=== PATIENT | male | born 1970 | race Two or more races ===

== ENCOUNTER 2023-11-13 09:24 | Emergency (ER) | payer OTHER, SELFPAY ==
[2023-11-13 09:32] VITALS: BP 166/106; PULSE 70; TEMP 36.8; O2SAT 100; BMI 27.4
--- NOTE | 2023-11-13 09:57 | XR_ITS ---
The [address] [address] Patient Name: BLANE FERRER MRN: [id number] date: 1970 Sex: M Assigned Patient Location: ER Current Patient Location: ER Accession/Order Number: [id number] Exam Date: 11/13/2023 10:20 Report Date: 11/13/2023 10:42 At the request of: PAVEL TOM Procedure: XR ribs LT min 3V w CXR1V EXAMINATION: XR ribs LT min 3V w CXR1V HISTORY: pain ; left rib pain, inferior medial to left breast COMPARISON: No relevant comparison available. FINDINGS: LUNGS: Subtle opacity within lateral left lung base, likely atelectasis. PLEURA: No pneumothorax, effusion, or pleural thickening. MEDIASTINUM: No visible mass or adenopathy. CARDIAC: No cardiomegaly or cardiac silhouette abnormality. RIBS: Nondisplaced fracture of lateral left seventh rib. OTHER: Negative. XR/XR ribs LT min 3V w CXR1V IMPRESSION: 1. Acute, nondisplaced left seventh rib fracture. 2. Trace amount of atelectasis within lateral left lung base. No pneumothorax or significant pleural effusion. Electronically authenticated by: IRAIDA PITTS Date: 11/13/2023 10:42
--- NOTE | 2023-11-13 09:57 | XR_ITS ---
The [address] [address] Patient Name: BLANE FERRER MRN: [id number] date: 1970 Sex: M Assigned Patient Location: ER Current Patient Location: ED.MAIN Accession/Order Number: [id number] Exam Date: 11/13/2023 10:20 Report Date: 11/13/2023 10:36 At the request of: PAVEL TOM Procedure: XR hand RT min 3V PROCEDURE: XR hand RT min 3V HISTORY: finger injury ; acute right third digit pain COMPARISON: None. FINDINGS: BONES:No fracture, acute abnormality, or significant arthropathy. SOFT TISSUES:Soft tissue injury to tip of third digit. No radiopaque foreign body. EFFUSION:None visible. OTHER: Negative. XR/XR hand RT min 3V IMPRESSION: 1. Tip of third digit soft tissue injury which may extend to near the level of the tuft. No radiopaque foreign body or appreciable involvement of the bone. Electronically authenticated by: IRAIDA PITTS Date: 11/13/2023 10:36
--- NOTE | 2023-11-13 11:10 | ED_ITS ---
HPI HPI - General Adult General Chief complaint: Extremity Injury, Upper Stated complaint: RIGHT MIDDLE FINGER PAIN, LEFT SIDE PAIN Time Seen by Provider: 11/13/23 09:54 Source: patient Mode of arrival: walk-in Limitations: no limitations History of Present Illness HPI narrative: 53-year-old male presents for a chief complaint of pain to his left lateral rib area he was doing some work and injured it somehow but is not exactly sure. He did not fall. He had been working on a garage door. He also injured his right middle finger, avulsed the tip of the skin. Both of these incidents happened 4 days ago and were unrelated to each other. Last tetanus shot was about 5 years ago. The pain in his left rib area is sharp and worse in certain positions. He is not complaining of shortness of breath. Related Data Previous Rx's ?Medication ?Instructions ?Recorded acetaminophen 300 mg-codeine 30 mg 1 tab PO Q6H PRN pain 5 days #20 11/13/23 tablet tabs Allergies Allergy/AdvReac Type Severity Reaction Status Date / Time No Known Drug Allergies Allergy Verified 11/13/23 09:36 Opioid HPI Opioid Management Most Recent Opioid Data: Last Pain Scale 4 11/13/23 09:37 Review of Systems ROS Narrative A ten point review of systems is negative except as noted above. Exam Narrative Exam Narrative: Nurses note and vital signs reviewed and patient is not hypoxic. General: The patient appears well and in no apparent distress. Patient is resting comfortably on cart. Skin: Warm, dry, no pallor noted. There is no rash noted. Head: Normocephalic, atraumatic Eye: Normal conjunctiva, no drainage Ears, Nose, Mouth, and Throat: oral mucosa is moist. Nares patent. Cardiovascular: Regular Rate and Rhythm Respiratory: Patient is in no distress, no accessory muscle use, lungs are clear to auscultation, no wheezing, rales or rhonchi. Chest wall on the left side has no crepitus bruise or abrasion but does have tenderness Back: non-tender GI: Soft and nontender including the left upper quadrant Musculoskeletal: T the tip of his right middle finger is partially avulsed. It is not bleeding and no surrounding erythema or drainage. It is still slightly attached. Neurological: A&O, normal speech Psychiatric: Cooperative Constitutional Vital Signs, click to edit/add: Last Vital Signs Temp 98.3 F 11/13/23 09:32 Pulse 70 11/13/23 09:32 Resp 16 11/13/23 09:32 BP 166/106 H 11/13/23 09:32 Pulse Ox 100 11/13/23 09:32 O2 Del Method Room Air 11/13/23 09:32 Course Vital Signs Vital signs: Vital Signs Temperature 98.3 F 11/13/23 09:32 Pulse Rate 70 11/13/23 09:32 Respiratory Rate 16 11/13/23 09:32 Blood Pressure 166/106 H 11/13/23 09:32 Pulse Oximetry 100 11/13/23 09:32 Oxygen Delivery Method Room Air 11/13/23 09:32 Temperature 98.3 F 11/13/23 09:32 Pulse Rate 70 11/13/23 09:32 Respiratory Rate 16 11/13/23 09:32 Blood Pressure 166/106 H 11/13/23 09:32 Pulse Oximetry 100 11/13/23 09:32 Oxygen Delivery Method Room Air 11/13/23 09:32 Medical Decision Making MDM Narrative Medical decision making narrative: Rib fractures identified and he was given an incentive spirometer. He was also prescribed Tylenol 3. He has had no issues with narcotics in the past. Tetanus is up-to-date and his wound was cleansed and dressed. Removal of that skin is not indicated at this point. He was informed that it will completely fall off s pontaneously. Treatment diagnosis and follow-up were discussed with the patient Differential Diagnosis Differential Diagnosis: Rib fracture, pneumothorax, chest wall strain Imaging Data Rib x-rays, hand x-ray: Radiologist's impression: ITS Impressions Hand X-Ray 11/13/23 09:57 IMPRESSION: 1. Tip of third digit soft tissue injury which may extend to near the level of the tuft. No radiopaque foreign body or appreciable involvement of the bone. Electronically authenticated by: IRAIDA PITTS Date: 11/13/2023 10:36 Ribs X-Ray 11/13/23 09:57 IMPRESSION: 1. Acute, nondisplaced left seventh rib fracture. 2. Trace amount of atelectasis within lateral left lung base. No pneumothorax or significant pleural effusion. Electronically authenticated by: IRAIDA PITTS Date: 11/13/2023 10:42 Discharge Plan Discharge Stand Alone Forms: Portal Instructions Chief Complaint: Extremity Injury, Upper Clinical Impression: Fracture of rib, Avulsion of skin of finger Patient Disposition: Home, Self-Care Time of Disposition Decision: 11:07 Condition: Good Mode of Transportation: Private Vehicle Prescriptions / Home Meds: New acetaminophen-codeine 300-30 mg tablet 1 tab PO Q6H PRN (Reason: pain) 5 Days Qty: 20 0RF Print Language: Indonesian Instructions: Rib Fracture (ED) Referrals: Physician,Non-Staff, MD [Primary Care Provider] - 1 week
[2023-11-13 11:20] VITALS: BP 166/99; PULSE 84; O2SAT 96
== END 2023-11-13 11:48 | disposition home or self-care (01) ==
PROVIDERS: Emergency Provider Emergency Medicine
DX: S22.32XA Fracture of one rib, left side, initial encounter for closed fracture (principal); S61.202A Unspecified open wound of right middle finger without damage to nail, initial encounter; X58.XXXA Exposure to other specified factors, initial encounter
CPT/HCPCS: 71101; 73130; 94667; 99284